=== PATIENT | female | born 1985 | race Caucasian/White ===

== ENCOUNTER → 2024-07-13 12:47 | Outpatient (BNVA) | payer BC, SELFPAY | PROVIDERS: PCP Electrodiagnostic Medicine; Visit Provider Nurse Practitioner Women's Health | DX: Z12.4 Encounter for screening for malignant neoplasm of cervix (principal) | CPT/HCPCS: 87624 ==

== ENCOUNTER 2024-07-14 13:44 | Outpatient (CLI) | payer BC, SELFPAY ==
--- NOTE | 2024-07-14 13:57 | CT_ITS ---
WS: [id number] CT ABDOMEN AND PELVIS WITH AND WITHOUT CONTRAST HISTORY: RECURRENT UTI, LEFT FLANK DISCOMFORT TECHNIQUE: Unenhanced 5 mm axial imaging first performed through the abdomen. Post contrast imaging t hrough the abdomen and pelvis. Oral contrast has not been provided. Sagittal and coronal reformats a re submitted. All CT scans at [facility] use at least one of these dose optimization techniqu es: automated exposure control; mA and/or kV adjustment per patient size (includes targeted exams whe re dose is matched to clinical indication); or iterative reconstruction. CONTRAST: Omnipaque 350; 95 mL IV. DLP: 1819.15 mGy.cm COMPARISON: None available. Lung bases are clear. Heart size is normal. Small hiatal hernia. RIGHT kidney: 11.4 cm. No renal calcifications or ureteral calcification or obstruction. No uroepithe lial lesions. No mass. LEFT kidney: 11.2 cm. Normal size kidney with no cortical thinning. No perinephric stranding or obstr uction. No renal or ureteral calcifications. No mass. No uroepithelial lesions. Liver spleen and gallbladder are are negative. Normal adrenal glands. Normal pancreas. Normal aorta. Normal appearance of the stomach and small bowel. No colon obstruction. Normal appendix. No ascites o r adenopathy. Normally distended urinary bladder. No intraluminal filling defects. Uterus is noted extending anteri or. Small normal-appearing ovaries by CT. No destructive bone lesions. Small sclerotic foci in the RIGHT hip consistent with bone islands. CT/CT abdomen pelvis wo/w [id number] IMPRESSION: 1. No renal or ureteral obstruction or mass. No uroepithelial lesions. 2. No renal calcifications. 3. Negative urinary bladder. 4. No renal obstruction. 5. No ascites or adenopathy.
[2024-07-14] MEDS: iohexol 350 mg/mL 500 mL Btl (per mL) IV (14:41)
== END 2024-07-14 13:45 | disposition home or self-care (01) ==
PROVIDERS: Absent Provider Nurse Practitioner Women's Health; PCP Family Medicine; Visit Provider Nurse Practitioner Family
DX: N39.0 Urinary tract infection, site not specified (principal); R10.9 Unspecified abdominal pain; K44.9 Diaphragmatic hernia without obstruction or gangrene
CPT/HCPCS: 74178

== ENCOUNTER 2024-08-10 12:39 | Outpatient (RCR) | payer BC, SELFPAY | END 2024-09-03 23:59 | disposition home or self-care (01) | LOC: SPT 12:39 | PROVIDERS: PCP Family Medicine; Visit Provider Nurse Practitioner Women's Health | DX: R32 Unspecified urinary incontinence (principal) | CPT/HCPCS: 97110; 97161; 97530 ==

== ENCOUNTER 2024-09-04 06:00 | Outpatient (RCR) | payer BC, SELFPAY | END 2024-10-04 23:59 | disposition home or self-care (01) | LOC: SPT 06:00 | PROVIDERS: PCP Family Medicine; Visit Provider Nurse Practitioner Women's Health | DX: R32 Unspecified urinary incontinence (principal); R10.2 Pelvic and perineal pain | CPT/HCPCS: 97110; 97530 ==